=== PATIENT | male | born 1985 | race African-American/Black ===

== ENCOUNTER → 2018-02-14 | Outpatient (CLI) | payer MEDICARE ==
--- NOTE | 2018-02-14 11:26 | Diagnostic Imaging Report ---
PROCEDURE: CT ABDOMEN AND PELVIS WITHOUT CONTRAST TECHNIQUE: The abdomen and pelvis were scanned utilizing a multidetector helical scanner from the diaphragm to the lesser trochanter after the oral administration of Gastrografin. No intravenous contrast was administered due to iodine allergy. Coronal and sagittal multiplanar reformations were obtained. COMPARISON: None. INDICATIONS: Abdominal pain FINDINGS: ABSENCE OF INTRAVENOUS CONTRAST DECREASES SENSITIVITY FOR DETECTION OF FOCAL LESIONS AND VASCULAR PATHOLOGY. LOWER THORAX: Normal. HEPATOBILIARY: No focal hepatic lesion or intrahepatic biliary ductal dilatation. The gallbladder is unremarkable. SPLEEN: No splenomegaly. PANCREAS: No focal masses or ductal dilatation. ADRENALS: Dystrophic calcifications in the right adrenal gland. No adrenal nodule. KIDNEYS/URETERS: No hydronephrosis, calculus, or gross mass lesion. PELVIC ORGANS/BLADDER: The urinary bladder is poorly distended and incompletely evaluated. Prostate and seminal vesicles are unremarkable. Pelvic phleboliths. PERITONEUM / RETROPERITONEUM: No ascites. No pneumoperitoneum. LYMPH NODES: No pelvic sidewall, retroperitoneal, or mesenteric lymphadenopathy. VESSELS: Limited evaluation without intravenous contrast. The abdominal aorta is non-aneurysmal. GI TRACT: The large bowel shows no evidence of distention or wall thickening, though the sigmoid colon and rectum are collapsed and poorly evaluated. The appendix is normal. Prominence of the gastric rugal folds is a consequence of under distention. There is no small bowel dilatation to suggest obstruction. BONES AND SOFT TISSUES: No focal soft tissue abnormalities. No osseous destructive lesions. IMPRESSION: No acute intra-abdominal or pelvic CT abnormalities. Dictated by: Paul Ventura M.D. on 02/14/2018 at 11:31 Electronically approved by: Paul Ventura M.D. on 02/14/2018 at 11:31
== END ==
LOC: CT 09:08
PROVIDERS: ATTEND Internal Medicine
DX: R10.9 Unspecified abdominal pain (principal)
CPT/HCPCS: 74176